=== PATIENT | male | born 1945 | race Caucasian/White ===

== ENCOUNTER 2022-07-12 12:24 | Outpatient (OUT) | payer MEDICARE, SELFPAY ==
--- NOTE | 2022-07-12 16:23 | MISC_ITS ---
CONSULTATION DATE: ??07/12/2022 TO:? John Webber D.O. CHIEF COMPLAINT:? Includes right leg pain or right orta pain. HISTORY:? He reports the pain as being 1-5/10 pain, burning in character and it is intermittent.? His main complaint actually is discoloration in terms of his right lower extremity, mainly his toes; his first and second toes on the right side which turn bluish when being seated, and when he ambulates the blue coloration disappears.? Denies any change in bowel and bladder habits or new sensorimotor changes in the lower extremities.? He feels most comfortable in the semi-recumbent position. EXAMINATION:? Notable for patient having no clinical radiculopathy or myelopathy involving the lower extremities.? He had some very mild myofascial dysfunction involving the anterior tibialis on the right side.? I was able to palpate distal pulses in both lower extremities and he had good capillary refill. IMPRESSION: ?Our impression is patient appears to have chronic pain secondary to myofascial spasm right anterior tibialis.? RECOMMENDATIONS:? At this time, I do not recommend any further therapy in regards to the same.? His issue in terms of discoloration of the first and the second toe on the right side turning blue may be a circulatory issue, as I described to the patient, and to follow up with your office for evaluation of the same.? I do not believe that the patient has pain in his right lower extremity related to a current radicular process or significant myofascial component to his pain symptoms.? His pain from his radiculopathy appears to be stable.? At this time, I recommend no further intervention for his current symptoms and complaints of discoloration of his right first and second toes, and we will see the patient back in the office on an as needed basis. As part of providing excellent, safe, comprehensive care, the following was completed at our patient's visit: 1. A medication reconciliation and review to ensure accurate knowledge of current/active medications, including asking our patients to inform us about any [id number] medications or herbal remedies/nutritional supplements/alternative remedies. 2. A review to specifically ensure our patients have had annual screening for: elevated body mass index (BMI, see intake chart for exact total), tobacco use, screening for depression, and screening for unhealthy alcohol use.? When screening is concerning, patients are provided with education and the specific recommendation to discuss the concerning health issue and treatment options with their primary care provider. DAVID
== END 2022-07-12 12:25 ==
PROVIDERS: Visit Provider Anesthesiology Pain Medicine
DX: M62.838 Other muscle spasm (principal); G89.29 Other chronic pain
CPT/HCPCS: G0463